=== PATIENT | female | born 1965 | race Caucasian/White ===

== ENCOUNTER → 2017-10-01 | Outpatient (CLI) | payer OTHER ==
[~2017-10-01] VITALS: Ht 154.9 cm; Wt 62.6 kg
[~2017-10-01] MED LIST: ADVIL200 MG PO; BIOTIN 5000MCG PO; CAMILA0.35 MG PO; CHARCOAL, ACTI260 MG PO; ENZYME; L-LYSINE1000 M1 PO; NASACORT10.8 ML BOTH NARES; ONE DAILY WOME1 EACH PO; PROBIOTIC1 EAC1 PO; PROTONIX40 MG PO; PROVENTIL,2.5 MG/3 M IH; SUPER B COMPLE1 EAC2 PO; VENTOLIN HFA18 GM IH; VITAMIN C1000 MG PO; VITAMIN D35000 UNIT PO; ZYRTEC10 M3 PO; ~No Medications
== END | disposition home or self-care (01) ==
LOC: AMB 09:00
PROC: 0DJ08ZZ Inspection of Upper Intestinal Tract, Via Natural or Artificial Opening Endoscopic (ICD-10-PCS; principal; 2017-10-01)
DX: K44.9 Diaphragmatic hernia without obstruction or gangrene (principal); R10.13 Epigastric pain; K21.9 Gastro-esophageal reflux disease without esophagitis; F45.8 Other somatoform disorders; J45.909 Unspecified asthma, uncomplicated; E55.9 Vitamin D deficiency, unspecified; Z80.0 Family history of malignant neoplasm of digestive organs; Z88.0 Allergy status to penicillin
CPT/HCPCS: J2250